=== PATIENT | female | born 1945 | race Caucasian/White ===

== ENCOUNTER 2024-08-09 13:06 | Outpatient (OUT) | payer MEDICARE, SELFPAY ==
--- NOTE | 2024-08-09 13:07 | US_ITS ---
The [address] [address] Patient Name: EBONY BLACKMON MRN: [id number] date: 1945 Sex: F Assigned Patient Location: US Current Patient Location: US Accession/Order Number: [id number] Exam Date: 08/09/2024 13:10 Report Date: 08/09/2024 14:04 At the request of: ROSEMARY PEREIRA Procedure: US venous doppler LE RT EXAMINATION: US venous doppler LE RT HISTORY: Right Calf Pain COMPARISON: No relevant comparison available. FINDINGS: REGION: Right lower extremity THROMBI: None. COMPRESSIBILITY: Normal compressibility. FLOW: Normal waveform and antegrade flow between 5 and 20 cm/s. OTHER: Large fluid collection within popliteal fossa favoring a Kerr's cyst. US/US venous doppler LE RT IMPRESSION: 1. No deep vein thrombus within the right lower extremity. 2. Prominent Kerr cyst. Electronically authenticated by: ADEN JOSE Date: 08/09/2024 14:04
== END 2024-08-09 13:07 | disposition home or self-care (01) ==
LOC: US 13:06
PROVIDERS: Visit Provider Podiatrist Foot & Ankle Surgery
DX: M79.604 Pain in right leg (principal)
CPT/HCPCS: 93971

== ENCOUNTER 2024-08-12 07:59 | Outpatient (OUT) | payer MEDICARE, SELFPAY ==
--- NOTE | 2024-08-12 | XR_ITS ---
The [address] [address] Patient Name: EBONY BLACKMON MRN: [id number] date: 1945 Sex: F Assigned Patient Location: Current Patient Location: Accession/Order Number: [id number] Exam Date: 08/12/2024 08:35 Report Date: 08/12/2024 16:27 At the request of: ADEN MOROCHO Procedure: XR knee RT 4V EXAM: XR knee RT 4V HISTORY: RIGHT KNEE PAIN COMPARISON: None FINDINGS: 4 views right knee were obtained. No acute fracture or dislocation. Mild joint space narrowing noted in the medial compartment. Articular surface smooth in contour. Patella is appropriately positioned. No significant effusion. There is suggestion of mild chondrocalcinosis. XR/XR knee RT 4V IMPRESSION: Mild medial joint space narrowing without acute abnormality in the right knee. Mild chondrocalcinosis. Electronically authenticated by: ADEN COLMENARES Date: 08/12/2024 16:27
== END 2024-08-12 08:00 | disposition home or self-care (01) ==
LOC: EC 08:00
PROVIDERS: Visit Provider Orthopaedic Surgery
DX: M25.561 Pain in right knee (principal)
CPT/HCPCS: 73564

== ENCOUNTER 2024-08-20 08:31 | Outpatient (OUT) | payer MEDICARE, SELFPAY ==
--- NOTE | 2024-08-20 08:38 | MR_ITS ---
[place] [id number] Patient Name: EBONY BLACKMON MRN: [id number] date: 1945 Sex: F Assigned Patient Location: MRI Current Patient Location: [facility] Accession/Order Number: [id number] Exam Date: 08/20/2024 18:48 Report Date: 08/20/2024 19:00 At the request of: JOHNATHON MAR Procedure: MR knee RT wo con MR knee RT wo con 08/20/2024 10:35 AM SIGNS AND SYMPTOMS: Acute Pain Of Right Knee posteriorly with swelling PROTOCOL: Multiplanar multisequence MR images of the right knee without IV contrast COMPARISON: 08/12/2024 FINDINGS: Fluid: There is a small joint effusion. There is a complex appearing Kerr's cyst posteriorly measuring 3.7 x 2.8 x 7.4 cm in greatest dimension.. Medial compartment: Medial meniscus: There is a predominantly horizontally oriented tear involving the body of the medial meniscus extending towards the posterior horn without evidence of displaced fragments. Medial collateral ligament: Intact. Medial femoral condyle cartilage: There is partial thickness chondromalacia. Medial tibial plateau cartilage: There is partial thickness chondromalacia. Lateral compartment: Lateral meniscus: Intact. Lateral collateral ligament: Intact. Lateral femoral condyle cartilage: Preserved. Lateral tibial plateau cartilage: Preserved. Posterolateral corner: Popliteus tendon: Intact. Popliteofibular ligament: Intact. Proximal tibiofibular joint: Preserved. Anterior compartment: Alignment: Normal. Quadriceps tendon: Intact. There is edema within the quadriceps fat pad suspicious for fat pad impingement. Patellar tendon: Intact. Retinaculum: Medial intact. Lateral intact. Patellar cartilage: There is partial thickness chondromalacia.. Trochlea: There is partial thickness chondromalacia. . Plica: None. Hoffa fat pad: Normal. Intercondylar compartment: Anterior cruciate ligament: Intact. Increased signal intensity suggesting mucoid degeneration. Posterior cruciate ligament: Intact. Bones (other than subarticular marrow): Normal. Muscles: Normal. Vessels: Normal. Nerves: Normal. MR/MR knee RT wo con IMPRESSION: There is a predominantly horizontally oriented tear involving the body of the medial meniscus extending towards the posterior horn without evidence of displaced fragments. There is a small joint effusion. There is a complex appearing Kerr's cyst posteriorly measuring 3.7 x 2.8 x 7.4 cm in greatest dimension. There is edema within the quadriceps fat pad suspicious for fat pad impingement. Findings suggest mucoid degeneration of the anterior cruciate ligament. Impression dictated by: Gabo Kendrick M.D.08/20/2024 7:00 PM Dictation Location: [place] [address] Electronically authenticated by: [id number] Y Date: 08/20/2024 19:00
== END 2024-08-20 08:32 | disposition home or self-care (01) ==
LOC: MRI 08:31
PROVIDERS: Visit Provider Physician Assistant
DX: M25.561 Pain in right knee (principal); M79.671 Pain in right foot; S92.354D Nondisplaced fracture of fifth metatarsal bone, right foot, subsequent encounter for fracture with routine healing; M25.461 Effusion, right knee; M71.21 Synovial cyst of popliteal space [Baker], right knee; S83.241A Other tear of medial meniscus, current injury, right knee, initial encounter
CPT/HCPCS: 73630; 73721

== ENCOUNTER 2024-08-20 08:32 | Outpatient (OUT) | payer MEDICARE, SELFPAY ==
--- NOTE | 2024-08-20 08:50 | XR_ITS ---
The [address] [address] Patient Name: EBONY BLACKMON MRN: [id number] date: 1945 Sex: F Assigned Patient Location: [facility] Current Patient Location: MRI Accession/Order Number: [id number] Exam Date: 08/20/2024 11:40 Report Date: 08/20/2024 11:44 At the request of: ROSEMARY PEREIRA DPM Procedure: XR foot RT min 3V RIGHT FOOT - 3 views CLINICAL DATA: Lateral right foot pain for the past 3 weeks . Proximal fifth metatarsal fracture COMPARISON: 07/29/2024 Weightbearing AP, lateral and oblique views were obtained. There is redemonstration of an oblique fracture at the lateral base of the fifth metatarsal. There is no interval change in alignment though there is slight increase in prominence of the fracture cleft which might relate to resorption. No significant callus formation is noted. No additional fractures or dislocation are seen. There are no significant soft tissue abnormalities. XR/XR foot RT min 3V IMPRESSION: FRACTURE AT THE BASE OF THE FIFTH METATARSAL, WITHOUT CHANGE IN ALIGNMENT. Impression dictated by: Mallory Sage M.D.08/20/2024 11:44 AM Dictation Location: [place] [address] Electronically authenticated by: [id number] Y Date: 08/20/2024 11:44
== END 2024-08-20 08:33 | disposition home or self-care (01) ==
LOC: RAD 08:32
PROVIDERS: Visit Provider Podiatrist Foot & Ankle Surgery
DX: M79.671 Pain in right foot (principal); S92.354D Nondisplaced fracture of fifth metatarsal bone, right foot, subsequent encounter for fracture with routine healing
CPT/HCPCS: 73630

== ENCOUNTER 2024-09-09 08:50 | Outpatient (OUT) | payer MEDICARE, SELFPAY ==
--- NOTE | 2024-09-09 | XR_ITS ---
The [address] [address] Patient Name: EBONY BLACKMON MRN: [id number] date: 1945 Sex: F Assigned Patient Location: Current Patient Location: Accession/Order Number: [id number] Exam Date: 09/09/2024 10:12 Report Date: 09/09/2024 10:13 At the request of: ADEN MOROCHO MD Procedure: XR foot RT min 3V RIGHT FOOT - 3 views CLINICAL HISTORY: Follow-up fifth metatarsal fracture COMPARISON: Right foot 08/20/2024 FINDINGS: Interval sclerosis at the fracture of the base of the fifth metatarsal suggestive of healing response. No change in alignment. XR/XR foot RT min 3V IMPRESSION: HEALING FIFTH METATARSAL FRACTURE. Impression dictated by: Martín Malone Jr. [email or web address]/09/2024 10:13 AM Dictation Location: [place] [address] Electronically authenticated by: [id number] Y Date: 09/09/2024 10:13
== END 2024-09-09 08:51 | disposition home or self-care (01) ==
LOC: EC 08:51
PROVIDERS: Visit Provider Orthopaedic Surgery
DX: M79.671 Pain in right foot (principal); S92.354D Nondisplaced fracture of fifth metatarsal bone, right foot, subsequent encounter for fracture with routine healing
CPT/HCPCS: 73630

== ENCOUNTER 2024-10-07 09:31 | Outpatient (OUT) | payer MEDICARE, SELFPAY ==
--- NOTE | 2024-10-07 | XR_ITS ---
[address] [address] Patient Name: EBONY BLACKMON MRN: [id number] date: 1945 Sex: F Assigned Patient Location: Current Patient Location: Accession/Order Number: [id number] Exam Date: 10/07/2024 10:16 Report Date: 10/07/2024 10:17 At the request of: ADEN MOROCHO MD Procedure: XR foot RT min 3V 3 views right foot plain film weightbearing COMPARISON:09/09/2024 HISTORY: Follow-up assessment of right fifth metatarsal fracture ACUTE FINDINGS: Increased sclerosis consistent with interval healing. Stable alignment. DEGENERATIVE CHANGE: Unremarkable SOFT TISSUE FINDINGS: Unremarkable JOINT EFFUSION: None POSTOP CHANGES: None BONE MINERALIZATION: Adequate XR/XR foot RT min 3V IMPRESSION: Healing fracture with stable alignment Impression dictated by: Sami Castillo M.D.10/07/2024 10:17 AM Dictation Location: [place] [address] Electronically authenticated by: [id number] Y Date: 10/07/2024 10:17
== END 2024-10-07 09:32 | disposition home or self-care (01) ==
LOC: EC 09:31
PROVIDERS: Visit Provider Orthopaedic Surgery
DX: S92.354D Nondisplaced fracture of fifth metatarsal bone, right foot, subsequent encounter for fracture with routine healing (principal)
CPT/HCPCS: 73630